=== PATIENT | male | born 1940 | race Caucasian/White ===

== ENCOUNTER 2024-04-03 18:16 | Inpatient (IN) | payer OTHER, MEDICAID ==
[~2024-04-03] VITALS: Ht 172.7 cm; Wt 67.1 kg
[2024-04-03 19:22] LABS: AMPHET/METH SCREEN,URINE NEGATIVE (NEGATIVE); BARBITURATE SCREEN, URINE NEGATIVE (NEGATIVE); BENZODIAZEPINES SCREEN,URINE NEGATIVE (NEGATIVE); CANNABINOID SCREEN,URINE NEGATIVE (NEGATIVE); COCAINE SCREEN,URINE NEGATIVE (NEGATIVE); METHADONE SCREEN, URINE NEGATIVE (NEGATIVE); OPIATE SCREEN,URINE POSITIVE (NEGATIVE); PHENCYCLIDINE SCREEN,URINE NEGATIVE (NEGATIVE)
[2024-04-03 19:32] LABS: ALCOHOL, URINE DRUG SCREEN NEGATIVE (NEGATIVE)
[2024-04-03 19:46] LABS: BASOPHILS % (AUTO) 0.5 % (0.0-2.0); EOSINOPHILS % (AUTO) 0.5 % (1.0-6.0); HEMATOCRIT 28.3 % (41-53); HEMOGLOBIN 9.2 g/dL (13.5-17.5); LYMPHOCYTES # (AUTO) 0.9 K/uL (1.0-4.8); LYMPHOCYTES % (AUTO) 15.8 % (22.0-44.0); MEAN CORPUSCULAR HEMOGLOBIN 30.1 pg (26.0-34.0); MEAN CORPUSCULAR HGB CONC 32.5 G/dL (31.0-37.0); MEAN CORPUSCULAR VOLUME 92 fL (80-100); MONOCYTES # (AUTO) 0.7 K/uL (0.1-1.0); MONOCYTES % (AUTO) 12.3 % (2.0-9.0); NEUTROPHILS # (AUTO) 4.1 K/uL (1.8-7.7); NEUTROPHILS % (AUTO) 70.9 % (40.0-70.0); PLATELET COUNT (AUTO) 322 K/uL (150-450); RED BLOOD CELL COUNT(AUTO) 3.07 MIL/uL (4.50-5.90); WHITE BLOOD COUNT (AUTO) 5.8 K/uL (4.5-11.0)
[2024-04-03 19:49] LABS: ANION GAP 5 mmol/L (8-16); CALCIUM, TOTAL 8.7 mg/dL (8.8-10.5); CARBON DIOXIDE 27 mmol/L (22-29); CHLORIDE 99 mmol/L (98-107); CREATININE 1.16 mg/dL (0.60-1.30); GLOMERULAR FILTR. RATE CALC 60 mL/min (>60); GLUCOSE,RANDOM 129 mg/dL (70-110); SODIUM SERUM 131 mmol/L (136-145); UREA NITROGEN, BLOOD 16 mg/dL (7-18)
[2024-04-03 19:53] LABS: ALCOHOL, BLOOD (SERUM) < 3 mg/dL (0-10)
[2024-04-03 20:27] LABS: COVID AG,FIA SOURCE NASAL SWAB
[2024-04-03 20:49] LABS: SARS-COV2 (COVID) ANTIGEN,FIA Negative (Negative)
[2024-04-03] MEDS ORDERED: ACETAMINOPHEN 325 MG TABLET PO PRN (22:15)
[2024-04-03] MEDS ORDERED: PROMETHAZINE HCL 25 MG TABLET PO PRN (22:15)
[2024-04-03] MEDS ORDERED: GuaiFENesin/D-METHORPHAN [SUGAR-FREE] 200-20MG/10 ML SYRUP UDCUP PO PRN (22:15)
[2024-04-03] MEDS ORDERED: HydrOXYzine PAMOATE 50 MG CAPSULE PO PRN (22:15)
[2024-04-03] MEDS ORDERED: TUBERCULIN, PURIFIED PROTEIN DERIVATIVE 5 TU/0.1 ML SYRINGE ID ONE (22:15)
[2024-04-03] MEDS ORDERED: MAGNESIUM HYDROXIDE SUSPENSION 30 ML UDCUP PO PRN (22:15)
[2024-04-04] MEDS: QUEtiapine FUMARATE 100 MG TABLET PO PRN (00:19)
[2024-04-04] MEDS: DULoxetine HCL 20 MG CAPSULE PO SCH (08:20)
[2024-04-04] MEDS: THIAMINE 100 MG TABLET PO SCH (08:22)
[2024-04-04] MEDS: FOLIC ACID 1 MG TABLET PO SCH (08:22)
[2024-04-04] MEDS: MULTIVITAMINS WITH MINERALS, THERAPEUTIC TABLET PO SCH (08:23)
[2024-04-04 09:05] LABS: HEMOGLOBIN A1C 5.6 % (3.8-5.6)
[2024-04-04 09:13] LABS: CHOL/HDL RATIO 3.3 (4.2-7.3); FREE T4 (FREE THYROXINE) 0.96 ng/dL (0.76-1.46); THYROID STIMULATING HORMONE 8.61 uIU/mL (0.36-3.74)
[2024-04-04] MEDS: MAG HYDROX/ALUMINUM HYD/SIMETH ES 30 ML SUSPENSION UDCUP PO PRN (12:35)
[2024-04-04 16:45] VITALS: BP 128/83; PULSE 78; RESP 17; TEMP 97.9; O2SAT 100
[2024-04-04] MEDS ORDERED: SODIUM PHOSPHATE,MONO-DIBASIC 133 ML ENEMA PR PRN (19:00)
[2024-04-04] MEDS ORDERED: ACETAMINOPHEN 500 MG TABLET PO PRN (19:00)
[2024-04-04] MEDS ORDERED: MAG HYDROX/ALUMINUM HYD/SIMETH 30 ML SUSPENSION UDCUP PO PRN (19:00)
[2024-04-04] MEDS ORDERED: BISACODYL 10 MG RECTAL RECTAL SUPPOSITORY PR PRN (19:00)
[2024-04-04] MEDS ORDERED: LOPERAMIDE HCL 2 MG CAPSULE PO PRN (19:00)
[2024-04-04] MEDS ORDERED: ACETAMINOPHEN 650 MG RECTAL SUPPOSITORY PR PRN (19:00)
[2024-04-04 20:00] VITALS: BP 141/57; PULSE 96; RESP 19; TEMP 97.4; O2SAT 96
[2024-04-04] MEDS: MELATONIN 5 MG TABLET PO SCH (21:58)
[2024-04-04] MEDS: GABAPENTIN 300 MG CAPSULE PO SCH (21:58)
[2024-04-04] MEDS: -LIDODERM PATCH NOTE- MISC SCH (22:55)
[2024-04-05] MEDS ORDERED: PNEUMOCOCCAL VACCINE POLYVALENT 0.5 ML SYRINGE [PPSV23] IM. ONE (02:45)
[2024-04-05 08:44] LABS: FREE T4 (FREE THYROXINE) 0.94 ng/dL (0.76-1.46); THYROID STIMULATING HORMONE 3.44 uIU/mL (0.36-3.74)
[2024-04-05] MEDS: SENNOSIDES 8.6 MG TABLET PO SCH (09:00)
[2024-04-05] MEDS: OMEPRAZOLE 20 MG CAPSULE PO SCH (09:02)
[2024-04-05] MEDS: METHIMAZOLE 5 MG TABLET PO SCH (09:03)
[2024-04-05] MEDS: DOXAZOSIN MESYLATE 2 MG TABLET PO SCH (09:03)
[2024-04-05] MEDS: LIDOCAINE 5% TRANSDERMAL PATCH TD SCH (09:04)
[2024-04-05 10:01] VITALS: BP 138/66; PULSE 66; RESP 18; TEMP 96.9; O2SAT 100
[2024-04-05] MEDS: TRIHEXYPHENIDYL HCL 2 MG TABLET PO ONE (10:52)
[2024-04-05] MEDS: DiphenhydrAMINE HCL 50 MG/ML VIAL IM ONE (11:04)
[2024-04-05] MEDS: TRIHEXYPHENIDYL HCL 2 MG TABLET PO SCH (16:43)
[2024-04-05 20:14] VITALS: BP 118/69; PULSE 109; RESP 19; TEMP 97.5; O2SAT 97
[2024-04-05] MEDS: -LIDODERM PATCH NOTE- MISC SCH (20:56)
[2024-04-06 08:20] VITALS: BP 145/84; PULSE 77; RESP 18; TEMP 97.1; O2SAT 98
[2024-04-06] MEDS: LISINOPRIL 20 MG TABLET PO SCH (16:53)
[2024-04-06] MEDS: LOPERAMIDE HCL 2 MG CAPSULE PO PRN (21:53)
[2024-04-06 22:02] VITALS: BP 123/56; PULSE 84; RESP 18; TEMP 98.8; O2SAT 97
[2024-04-07 07:44] LABS: ANION GAP 10 mmol/L (8-16); CALCIUM, TOTAL 8.3 mg/dL (8.8-10.5); CARBON DIOXIDE 23 mmol/L (22-29); CHLORIDE 104 mmol/L (98-107); CREATININE 0.93 mg/dL (0.60-1.30); GLOMERULAR FILTR. RATE CALC > 60 mL/min (>60); GLUCOSE,RANDOM 103 mg/dL (70-110); POTASSIUM 4.1 mmol/L (3.5-5.1); SODIUM SERUM 137 mmol/L (136-145); UREA NITROGEN, BLOOD 21 mg/dL (7-18)
[2024-04-07] MEDS: MODAFINIL 100 MG TABLET PO SCH (08:59)
[2024-04-07] MEDS: ATORVASTATIN CALCIUM 40 MG TABLET PO SCH (09:03)
[2024-04-07 10:37] VITALS: BP 131/96; PULSE 86; RESP 18; TEMP 97.8; O2SAT 97
[2024-04-07] MEDS ORDERED: IBUPROFEN 600 MG TABLET PO PRN (16:00)
[2024-04-07 22:11] VITALS: BP 115/57; PULSE 63; RESP 18; TEMP 97.5; O2SAT 98
[2024-04-08 09:08] VITALS: BP 94/60; PULSE 76; RESP 18; TEMP 98.8; O2SAT 97
[2024-04-08] MEDS: DULoxetine HCL 30 MG CAPSULE PO SCH (09:37)
[2024-04-08 21:24] VITALS: BP 97/60; PULSE 76; RESP 18; TEMP 98.8; O2SAT 97
[2024-04-09] MEDS: ZOLPIDEM TARTRATE 5 MG TABLET PO PRN (00:19)
[2024-04-09] MEDS: LORazepam 0.5 MG TABLET PO PRN (01:56)
[2024-04-09 10:41] VITALS: BP 138/64; PULSE 61; RESP 18; TEMP 98.2; O2SAT 97
[2024-04-09 20:50] VITALS: BP 107/52; PULSE 76; RESP 18; TEMP 98.2; O2SAT 99
[2024-04-10 09:22] VITALS: BP 123/50; PULSE 75; RESP 18; TEMP 97.2; O2SAT 94
[2024-04-10 20:13] VITALS: BP 123/44; PULSE 56; RESP 19; TEMP 97.6; O2SAT 96
[2024-04-11] MEDS: DULoxetine HCL 20 MG CAPSULE PO SCH (09:39)
[2024-04-11 10:20] VITALS: BP 126/52; PULSE 65; RESP 18; TEMP 97.5; O2SAT 96
[2024-04-11 20:00] VITALS: BP 107/57; PULSE 87; RESP 19; TEMP 98; O2SAT 100
[2024-04-12] MEDS ORDERED: SODIUM CHLORIDE 0.9% 1,000 ML ONE (05:00)
[2024-04-12 06:25] VITALS: BP 123/74; PULSE 80; RESP 19; TEMP 98; O2SAT 98
[2024-04-12] MEDS ORDERED: MIDAZOLAM HCL 5 MG/ML VIAL ONE (07:12)
[2024-04-12] MEDS ORDERED: FentaNYL CITRATE PF 100 MCG/2 ML VIAL ONE (07:12)
[2024-04-12] MEDS ORDERED: NALOXONE HCL 0.4 MG/ML VIAL ONE (07:15)
[2024-04-12] MEDS ORDERED: FLUMAZENIL 0.1 MG/ML 5 ML VIAL IVP ONE (07:15)
[2024-04-12] MEDS ORDERED: DiphenhydrAMINE HCL 50 MG/ML VIAL ONE (07:15)
[2024-04-12] MEDS ORDERED: EPINEPHrine 1:10,000 [1 MG/10 ML] SYRINGE ONE (07:15)
[2024-04-12] MEDS ORDERED: SODIUM TETRADECYL SULFATE 3% 60 MG/2 ML VIAL IVP ONE (07:16)
[2024-04-12] MEDS ORDERED: ATROPINE SULFATE 0.1 MG/ML 10 ML SYRINGE IVP ONE (07:16)
[2024-04-12] MEDS: MIDAZOLAM HCL 5 MG/ML VIAL IVP ONE (07:54)
[2024-04-12] MEDS: FentaNYL CITRATE PF 100 MCG/2 ML VIAL IVP ONE (07:54)
[2024-04-12 09:52] VITALS: BP 112/56; PULSE 71; RESP 17; TEMP 97.8; O2SAT 98
[2024-04-12] MEDS: PEG 3350/NA SULF,BICARB,CL/KCL 4000 ML SOLUTION PO ONE (11:02)
[2024-04-12 11:03] VITALS: BP 115/64; RESP 18; O2SAT 97
[2024-04-12] MEDS: DULoxetine HCL 60 MG CAPSULE PO SCH (11:03)
[2024-04-12 16:22] VITALS: BP 111/58; RESP 17; O2SAT 96
[2024-04-12 20:48] VITALS: BP 138/49; PULSE 128; RESP 18; TEMP 98.6; O2SAT 99
[2024-04-12] MEDS: SODIUM CHLORIDE 0.9% 1,000 ML IV ONE (21:00)
[2024-04-13] MEDS: MODAFINIL 100 MG TABLET PO SCH (09:06)
[2024-04-13 09:46] VITALS: BP 163/106; PULSE 97; RESP 17; TEMP 97.9; O2SAT 95
[2024-04-13] MEDS ORDERED: SODIUM CHLORIDE 0.9% 1,000 ML ONE (10:04)
[2024-04-13] MEDS ORDERED: MIDAZOLAM HCL 5 MG/ML VIAL ONE (10:54)
[2024-04-13] MEDS ORDERED: FentaNYL CITRATE PF 100 MCG/2 ML VIAL ONE (10:54)
[2024-04-13] MEDS ORDERED: EPINEPHrine 1:10,000 [1 MG/10 ML] SYRINGE ONE (10:55)
[2024-04-13] MEDS ORDERED: DiphenhydrAMINE HCL 50 MG/ML VIAL ONE (10:55)
[2024-04-13] MEDS ORDERED: ATROPINE SULFATE 0.1 MG/ML 10 ML SYRINGE IVP ONE (10:55)
[2024-04-13] MEDS ORDERED: FLUMAZENIL 0.1 MG/ML 5 ML VIAL IVP ONE (10:55)
[2024-04-13] MEDS ORDERED: SODIUM TETRADECYL SULFATE 3% 60 MG/2 ML VIAL IVP ONE (10:55)
[2024-04-13] MEDS ORDERED: NALOXONE HCL 0.4 MG/ML VIAL ONE (10:55)
[2024-04-13] MEDS: SODIUM CHLORIDE 0.9% 1,000 ML IV ONE (11:14)
[2024-04-13] MEDS: MIDAZOLAM HCL 5 MG/ML VIAL IVP ONE (11:33)
[2024-04-13] MEDS: FentaNYL CITRATE PF 100 MCG/2 ML VIAL IVP ONE (11:33)
[2024-04-13 21:57] VITALS: BP 108/55; PULSE 74; RESP 18; TEMP 97; O2SAT 100
[2024-04-14 08:00] VITALS: BP 130/81; PULSE 62; RESP 16; TEMP 97.8; O2SAT 99
[2024-04-14 21:55] VITALS: BP 98/52; PULSE 79; RESP 18; TEMP 97.4; O2SAT 97
[2024-04-15 10:18] VITALS: BP 120/72; PULSE 67; RESP 18; TEMP 98.2; O2SAT 98
[2024-04-15 17:10] VITALS: BP 138/62; RESP 18; O2SAT 98
[2024-04-15 21:49] VITALS: BP 125/70; PULSE 70; RESP 18; TEMP 98; O2SAT 98
[2024-04-16 10:02] VITALS: BP 129/60; PULSE 76; RESP 19; TEMP 98; O2SAT 97
[2024-04-16 20:41] VITALS: BP 112/75; PULSE 88; RESP 19; TEMP 98; O2SAT 92
[2024-04-17 09:00] VITALS: BP 112/56; PULSE 74; RESP 18; TEMP 98.1; O2SAT 98
[2024-04-17] MEDS: FLUTICASONE PROPIONATE 50 MCG/SPRAY 16 GM NASAL SPRAY NASAL PRN (10:16)
[2024-04-17] MEDS ORDERED: MODA100T65 PO (17:28)
[2024-04-17] MEDS ORDERED: GABA-1181 PO (17:28)
[2024-04-17] MEDS ORDERED: MELA5TAB40 PO (17:28)
[2024-04-17] MEDS ORDERED: DULO-113 PO (17:28)
[2024-04-17 22:58] VITALS: BP 115/63; PULSE 87; RESP 18; TEMP 98.2; O2SAT 96
[2024-04-18 08:55] VITALS: BP 129/53; PULSE 76; RESP 18; TEMP 98.2; O2SAT 98
[2024-04-18] MEDS ORDERED: IOHEXOL 300 MG/ML 100 ML VIAL ONE (15:46)
[2024-04-18] MEDS ORDERED: 0.9% SODIUM CHLORIDE 10 ML SYRINGE IVP ONE (15:46)
[2024-04-18] MEDS ORDERED: SODIUM CHLORIDE 0.9% 100 ML ONE (15:46)
[2024-04-18 21:48] VITALS: BP 116/57; PULSE 81; RESP 18; TEMP 98.5; O2SAT 98
[2024-04-19 10:08] VITALS: BP 123/89; PULSE 76; RESP 19; TEMP 98.4; O2SAT 99
[2024-04-19 20:37] VITALS: BP 116/52; PULSE 72; RESP 19; TEMP 97.6; O2SAT 98
[2024-04-20 09:48] VITALS: BP 148/57; PULSE 58; RESP 18; TEMP 97; O2SAT 99
[2024-04-20 21:48] VITALS: BP 121/64; PULSE 87; RESP 18; TEMP 97.5; O2SAT 99
[2024-04-21 09:39] VITALS: BP 122/62; PULSE 82; RESP 18; TEMP 98; O2SAT 97
[2024-04-21] MEDS ORDERED: ATOR40TA28 PO (10:26)
[2024-04-21] MEDS ORDERED: MULT-1303 PO (10:26)
[2024-04-21] MEDS ORDERED: DOXA2TAB86 PO (10:26)
[2024-04-21] MEDS ORDERED: LIDO700A15 TP (10:26)
[2024-04-21] MEDS ORDERED: SENN-376 PO (10:26)
[2024-04-21] MEDS ORDERED: METH-386 PO (10:26)
[2024-04-21] MEDS ORDERED: OMEP20 PO (10:26)
[2024-04-21] MEDS ORDERED: LISI-894 PO (10:26)
== END 2024-04-21 13:53 | DRG 885 ==
LOC: EMS 18:16 → EDH 04-04 14:13 → 3EI 04-04 14:13 → UNDOADMIN 04-04 14:13 → 3EI 04-11 15:14
PROVIDERS: ADMIT Psychiatry & Neurology Psychiatry; ATTEND Psychiatry & Neurology Psychiatry
PROC: GZHZZZZ Group Psychotherapy (ICD-10-PCS; 2024-04-04)
PROC: GZ51ZZZ Individual Psychotherapy, Behavioral (ICD-10-PCS; 2024-04-04)
PROC: 0DB78ZX Excision of Stomach, Pylorus, Via Natural or Artificial Opening Endoscopic, Diagnostic (ICD-10-PCS; principal; 2024-04-12 07:50)
PROC: 0DBK8ZZ Excision of Ascending Colon, Via Natural or Artificial Opening Endoscopic (ICD-10-PCS; 2024-04-13)
PROC: 0DBL8ZX Excision of Transverse Colon, Via Natural or Artificial Opening Endoscopic, Diagnostic (ICD-10-PCS; 2024-04-13)
DX: F33.2 Major depressive disorder, recurrent severe without psychotic features (principal); F02.83 Dementia in other diseases classified elsewhere, unspecified severity, with mood disturbance; R45.851 Suicidal ideations; Z59.01 Sheltered homelessness; C18.2 Malignant neoplasm of ascending colon; G30.9 Alzheimer's disease, unspecified; Z20.822 Contact with and (suspected) exposure to COVID-19; I10 Essential (primary) hypertension; Z51.5 Encounter for palliative care; K44.9 Diaphragmatic hernia without obstruction or gangrene; K63.5 Polyp of colon; K29.70 Gastritis, unspecified, without bleeding; E78.5 Hyperlipidemia, unspecified; G47.09 Other insomnia; D64.9 Anemia, unspecified; I25.10 Atherosclerotic heart disease of native coronary artery without angina pectoris; Z87.891 Personal history of nicotine dependence; Z79.899 Other long term (current) drug therapy
CPT/HCPCS: 74177; 80048; 80061; 80307; 82271; 82378; 83036; 84439; 84443; 85025; 86592; 87081; 88305; 93005; 99285; G0480; J0171; J0461; J1200; J2250; J2310; J3010; J3490; J7030; J7050; Q9967